=== PATIENT | male | born 1950 | race Caucasian/White ===

== ENCOUNTER → 2018-03-16 | Outpatient (CLI) | payer MEDICARE, BC ==
[~2018-03-16] MED LIST: ALPH50CA2 PO; ASCO-96 PO; ASPI81TA45 PO; ATOR40TA78 PO; CHRO400T6 PO; CINN500C2 PO; DAPA5TAB PO; EXEN2PEN SC; GLIP5TAB10 PO; GLUC15006 PO; LISI1TAB5 PO; MAGN400T36 PO; MELO15TA24 PO; METF500T9 PO; MULT-516 PO; MV-M1TAB19 PO; OMEG1CAP24 PO; OMEP-110 PO; VITA100C8 PO; VITAMIN D PO
[2018-03-16 10:13] LABS: BASOPHILS # (AUTO) 0.02 x10^3/uL (0-0.1); BASOPHILS % (AUTO) 0 % (0-1); EOSINOPHILS # (AUTO) 0.12 x10^3/uL (0-0.4); EOSINOPHILS % (AUTO) 2 % (1-7); LYMPHOCYTES # (AUTO) 1.05 x10^3/uL (1-3.4); LYMPHOCYTES % (AUTO) 16 % (22-44); MD NO; MEAN CORPUSCULAR HEMOGLOBIN 28.7 pg (27.5-34.5); MEAN CORPUSCULAR HGB CONC 33.4 g/dL (33.2-36.2); MEAN CORPUSCULAR VOLUME 86.1 fL (81-97); MONOCYTES # (AUTO) 0.68 x10^3/uL (0.2-0.8); MONOCYTES % (AUTO) 11 % (2-9); NEUTROPHILS # (AUTO) 4.61 x10^3/uL (1.8-6.8); NEUTROPHILS % (AUTO) 71 % (42-75); PLATELET COUNT 193 x10^3/uL (130-400); RED BLOOD COUNT 5.24 x10^6/uL (4.38-5.82); RED CELL DISTRIBUTION WIDTH 12.9 % (9.4-14.8)
[2018-03-16 10:21] LABS: MICROSCOPIC NOT IND
[2018-03-16 10:23] LABS: ALANINE AMINOTRANSFERASE 44 U/L (12-78); ALBUMIN 4.3 g/dL (3.4-5.0); ANION GAP 8 mmol/L (5-15); CALCIUM 9.6 mg/dL (8.5-10.1); CHLORIDE 98 mmol/L (98-107); CREATININE 1.02 mg/dL (0.7-1.3)
[2018-03-16 10:25] LABS: ALKALINE PHOSPHATASE 75 U/L (45-117); BILIRUBIN,TOTAL 0.5 mg/dL (0.2-1.0); TOTAL PROTEIN 7.7 g/dL (6.4-8.2)
[2018-03-16 10:30] LABS: CULTURE INDICATED? NO
== END | disposition home or self-care (01) ==
LOC: STAR 09:02
PROVIDERS: ATTEND Orthopaedic Surgery
DX: Z01.818 Encounter for other preprocedural examination (principal); M17.0 Bilateral primary osteoarthritis of knee
CPT/HCPCS: 36415; 80053; 81003; 85025; 87081; 87806; 93005; G0475

== ENCOUNTER 2018-03-27 07:32 | Observation (INO) | payer MEDICARE, BC ==
[~2018-03-27] VITALS: Ht 185.4 cm; Wt 118.0 kg
[2018-03-27] MEDS: D5%-0.45% NACL 1,000 ML IV SCH ×4 (07:49→22:49)
[2018-03-27] MEDS ORDERED: DIPHENHYDRAMINE 50 MG CAPSULE PO PRN (08:00)
[2018-03-27] MEDS ORDERED: VANCOMYCIN PMX 1GM/200ML 200 ML IVPB ONE (08:00)
[2018-03-27] MEDS ORDERED: ACETAMINOPHEN 325 MG TABLET PO PRN (08:00)
[2018-03-27] MEDS ORDERED: ONDANSETRON 2MG/ML, 2ML IVPush PRN (08:00)
[2018-03-27] MEDS ORDERED: LORazepam 2 MG/ML, 1ML IVPush PRN (08:00)
[2018-03-27] MEDS ORDERED: ZOLPIDEM 5MG TABLET PO PRN (08:00)
[2018-03-27] MEDS ORDERED: morphine SULFATE 10 MG/ML, 1ML IVPush PRN (08:00)
[2018-03-27] MEDS ORDERED: LACTATED RINGERS 1,000 ML IV SCH (08:34)
[2018-03-27 08:50] VITALS: BP 151/91
[2018-03-27] MEDS ORDERED: ACETAMINOPHEN 500 MG TABLET PO ONE (09:00)
[2018-03-27] MEDS ORDERED: OXYcodone IR 5MG TABLET PO ONE (09:00)
[2018-03-27] MEDS ORDERED: DIAZEPAM 5 MG TABLET PO ONE (09:00)
[2018-03-27] MEDS ORDERED: GABAPENTIN 300 MG CAPSULE PO ONE (09:00)
[2018-03-27] MEDS ORDERED: FENTANYL PF 250 MCG/5ML ONE ×2 (09:21→10:56)
[2018-03-27] MEDS ORDERED: MIDAZOLAM 1 MG/ML, 2ML ONE (09:21)
[2018-03-27] MEDS ORDERED: TRANEXAMIC ACID 100 MG/ML, 10ML ONE (09:33)
[2018-03-27] MEDS ORDERED: KETOROLAC 60 MG/2 ML ONE (09:33)
[2018-03-27] MEDS ORDERED: EPINEPHRINE 1 MG/ML, 1ML ONE (09:34)
[2018-03-27] MEDS ORDERED: BACITRACIN 50,000 UNIT ONE (09:34)
[2018-03-27] MEDS ORDERED: SODIUM CHLORIDE 0.9% 100 ML ONE (09:34)
[2018-03-27] MEDS ORDERED: ROPIvacaine/PF 0.2%, 20 ML ONE (09:34)
[2018-03-27] MEDS ORDERED: morphine SULFATE/PF 1 MG/ML, 10ML ONE (09:34)
[2018-03-27] MEDS ORDERED: FENTANYL PF 100 MCG/2ML IV PRN (10:00)
[2018-03-27] MEDS ORDERED: ONDANSETRON 2MG/ML, 2ML IV PRN (10:00)
[2018-03-27] MEDS ORDERED: MEPERIDINE/PF 25MG/0.5ML IVPush PRN (10:00)
[2018-03-27] MEDS ORDERED: OXYcodone 5 MG/5 ML ORAL.SOL UDC PO PRN (10:00)
[2018-03-27] MEDS ORDERED: PROPOFOL 10 MG/ML, 20ML ONE (10:09)
[2018-03-27] MEDS ORDERED: SUCCINYLCHOLINE 20 MG/ML, 10ML ONE (10:09)
[2018-03-27] MEDS ORDERED: ONDANSETRON 2MG/ML, 2ML ONE (10:09)
[2018-03-27] MEDS ORDERED: DEXAMETHASONE 4 MG/ML, 1ML ONE (10:09)
[2018-03-27] MEDS ORDERED: hydrALAzine 20 MG/ML, 1ML ONE (10:09)
[2018-03-27] MEDS ORDERED: TRANEXAMIC ACID 1,000 MG in SODIUM CHLORIDE 0.9% 100 ML IV ONE (12:00)
[2018-03-27] MEDS ORDERED: HYDROmorphone 1 MG/ML, 1ML ONE (12:18)
[2018-03-27] MEDS ORDERED: OXYcodone 5 MG/5 ML ORAL.SOL UDC ONE (12:18)
[2018-03-27] MEDS: HYDROmorphone 2 MG/ML, 1ML IVPush PRN ×2 (12:21→12:37)
[2018-03-27 13:43] VITALS: BP 159/88
[2018-03-27] MEDS ORDERED: CEFAZOLIN PMX 1GM/50ML 50 ML IVPB SCH (14:00)
[2018-03-27] MEDS: CEFAZOLIN PMX 1GM/50ML 50 ML IVPB SCH (17:13)
[2018-03-27] MEDS: metFORMIN 500 MG TABLET PO SCH (17:21)
[2018-03-27] MEDS: OXYcodone/APAP 7.5/325MG TABLET PO PRN ×2 (17:21→21:07)
[2018-03-27 19:29] VITALS: BP 146/69
[2018-03-27] MEDS ORDERED: ATORVASTATIN 40 MG TABLET PO SCH (21:00)
[2018-03-27] MEDS ORDERED: GLIPizide ER 5 MG TABLET PO SCH (21:00)
[2018-03-27] MEDS: HYDROCHLOROTHIAZIDE 12.5 MG CAPSULE PO SCH (21:05)
[2018-03-27] MEDS: LISINOPRIL 20 MG TABLET PO SCH (21:06)
[2018-03-27 23:35] VITALS: BP 137/79
[2018-03-28] MEDS: OXYcodone/APAP 7.5/325MG TABLET PO PRN ×5 (01:38→16:50)
[2018-03-28] MEDS: CEFAZOLIN PMX 1GM/50ML 50 ML IVPB SCH ×2 (02:23→10:00)
[2018-03-28] MEDS: D5%-0.45% NACL 1,000 ML IV SCH (03:49)
[2018-03-28 04:36] VITALS: BP 126/71
[2018-03-28] MEDS ORDERED: OMEPRAZOLE 20 MG CAPSULE.DR PO SCH (06:00)
[2018-03-28 07:05] VITALS: BP 161/86
[2018-03-28] MEDS: metFORMIN 500 MG TABLET PO SCH ×2 (07:52→16:49)
[2018-03-28] MEDS: ASPIRIN 325 MG TABLET EC PO SCH ×2 (07:52→16:50)
[2018-03-28] MEDS: LISINOPRIL 20 MG TABLET PO SCH (07:53)
[2018-03-28] MEDS: HYDROCHLOROTHIAZIDE 12.5 MG CAPSULE PO SCH (07:53)
[2018-03-28] MEDS ORDERED: GLIPizide ER 5 MG TABLET PO SCH (08:00)
[2018-03-28] MEDS ORDERED: VITAMIN E 400 UNITS CAPSULE PO SCH (09:00)
[2018-03-28] MEDS ORDERED: FARXIGA 5 MG PO SCH (09:00)
[2018-03-28] MEDS ORDERED: MELOXICAM 15 MG TABLET PO SCH (09:00)
[2018-03-28] MEDS ORDERED: MULTIVITAMIN 1 TABLET PO SCH (09:00)
[2018-03-28] MEDS ORDERED: ASCORBIC ACID 500 MG TABLET PO SCH (09:00)
[2018-03-28] MEDS ORDERED: DOCUSATE 100 MG CAPSULE PO SCH (09:00)
[2018-03-28] MEDS ORDERED: MAGNESIUM OXIDE 400 MG TABLET PO SCH (09:00)
[2018-03-28] MEDS ORDERED: OMEGA-3/FISH OIL CAPSULE PO SCH (09:00)
[2018-03-28] MEDS ORDERED: CHOLECALCIFEROL 1,000 UNIT TABLET PO SCH (09:00)
[2018-03-28 13:19] VITALS: BP 156/76
== END 2018-03-28 17:39 | disposition home or self-care (01) ==
LOC: OUT 07:32 → ORIP 07:49 → EDSTATUS 10:00 → 4NOR 12:25
PROVIDERS: ADMIT Orthopaedic Surgery; ATTEND Orthopaedic Surgery
DX: M17.12 Unilateral primary osteoarthritis, left knee (principal)
CPT/HCPCS: 27447; 73564; 82962; 96365; 96366; 97110; 97162; 97165; C1713; C1776; G0378; G8978; G8979; G8980; J0171; J0330; J0360; J0690; J1100; J1170; J1885; J2250; J2274; J2405; J2704; J2795; J3010; J3370